=== PATIENT | male | born 2000 | race Two or more races ===

== ENCOUNTER 2023-04-09 17:42 | Emergency (ER) | payer OTHER ==
[~2023-04-09] VITALS: Ht 188 cm; Wt 145.4 kg
[2023-04-09] MEDS ORDERED: ESCI-8 PO (18:10)
[2023-04-09] MEDS ORDERED: DIAZ10TA4 PO (18:10)
[2023-04-09] MEDS ORDERED: RISP2TAB45 PO (18:10)
[2023-04-09] MEDS ORDERED: HYDR-4808 PO (18:10)
[2023-04-09] MEDS ORDERED: VALP250S27 PO (18:10)
[2023-04-09] MEDS ORDERED: OXCA600T18 PO (18:10)
[2023-04-09] MEDS ORDERED: OXCA300T70 PO (18:10)
[2023-04-09 18:40] LABS: COVID AG,FIA SOURCE NASOPHARYNGEAL
[2023-04-09 18:41] LABS: EOSINOPHILS % (AUTO) 1.9 % (1.0-6.0); HEMATOCRIT 41.5 % (41-53); HEMOGLOBIN 13.8 g/dL (13.5-17.5); LYMPHOCYTES % (AUTO) 33.2 % (22.0-44.0); MEAN CORPUSCULAR HEMOGLOBIN 29.9 pg (26.0-34.0); MEAN CORPUSCULAR HGB CONC 33.4 G/dL (31.0-37.0); MEAN CORPUSCULAR VOLUME 90 fL (80-100); MONOCYTES # (AUTO) 0.4 K/uL (0.1-1.0); MONOCYTES % (AUTO) 7.1 % (2.0-9.0); NEUTROPHILS # (AUTO) 3.4 K/uL (1.8-7.7); NEUTROPHILS % (AUTO) 56.8 % (40.0-70.0); PLATELET COUNT (AUTO) 236 K/uL (150-450); RED BLOOD CELL COUNT(AUTO) 4.64 MIL/uL (4.50-5.90); RED CELL DISTRIBUTION WIDTH 13.7 % (11.5-14.5)
[2023-04-09 18:58] LABS: ANION GAP 10 mmol/L (8-16); CALCIUM, TOTAL 9.1 mg/dL (8.8-10.5); CARBON DIOXIDE 26 mmol/L (22-29); CHLORIDE 101 mmol/L (98-107); CREATININE 0.73 mg/dL (0.60-1.30); GLOMERULAR FILTR. RATE CALC > 60 mL/min (>60); GLUCOSE,RANDOM 124 mg/dL (70-110); POTASSIUM 3.8 mmol/L (3.5-5.1); SODIUM SERUM 137 mmol/L (136-145); UREA NITROGEN, BLOOD 15 mg/dL (7-18)
[2023-04-09 19:00] LABS: ALCOHOL, BLOOD (SERUM) < 3 mg/dL (0-10)
[2023-04-09 19:04] LABS: ALANINE AMINOTRANSFERASE 76 U/L (12-78); ALBUMIN 3.6 g/dL (3.4-5.0); ALKALINE PHOSPHATASE 44 U/L (46-116); ASPARTATE AMINOTRANSFERASE 53 U/L (15-37); BILIRUBIN,TOTAL 0.2 mg/dL (0.1-1.0); TOTAL PROTEIN, SERUM 6.9 g/dL (6.4-8.2)
[2023-04-09 19:07] LABS: SARS-COV2 (COVID) ANTIGEN,FIA Negative (Negative)
[2023-04-09] MEDS ORDERED: LORazepam 2 MG/ML VIAL IM ONE (19:30)
[2023-04-09] MEDS ORDERED: DiphenhydrAMINE HCL 50 MG/ML VIAL IM ONE (19:30)
[2023-04-09] MEDS ORDERED: ZOLPIDEM TARTRATE 10 MG TABLET PO PRN (21:15)
[2023-04-09 22:36] VITALS: TEMP 97.5
[2023-04-10] MEDS ORDERED: ZIPRASIDONE MESYLATE 20 MG/VIAL IM ONE (02:45)
[2023-04-10] MEDS: LORazepam 2 MG TABLET PO PRN ×2 (07:39→11:55)
[2023-04-10] MEDS: HALOPERIDOL 5 MG TABLET PO PRN ×2 (09:55→14:01)
[2023-04-10] MEDS ORDERED: MELA5TAB40 PO (10:41)
[2023-04-10 15:15] VITALS: BP 136/76; PULSE 94; RESP 14
== END 2023-04-10 16:06 | disposition home or self-care (01) ==
LOC: EMS 17:44
DX: F20.9 Schizophrenia, unspecified (principal); F84.0 Autistic disorder; Z20.822 Contact with and (suspected) exposure to COVID-19
CPT/HCPCS: 99285; 87426; 80053; 85025; 36415; 96372 ×2; G0480; J1200; J2060; J3486